=== PATIENT | female | born 1940 | race Caucasian/White ===

== ENCOUNTER → 2022-03-28 | Day surgery (SDC) | payer MEDICARE ==
[2022-03-27 11:05] LABS: BASOPHILS % 0.2 % (0.0-1.0); EOSINOPHILS # (AUTO) 0.3 (0.0-0.4); EOSINOPHILS % 3.5 % (0.0-6.0); HEMATOCRIT 40.7 % (34.2-44.1); HEMOGLOBIN 12.7 g/dL (12.0-16.0); LYMPHOCYTES # (AUTO) 3.4 (1.0-3.2); LYMPHOCYTES % 38.5 % (18.0-39.1); MEAN CORPUSCULAR HEMOGLOBIN 29.8 pg (28-32); MEAN CORPUSCULAR HGB CONC 31.2 g/dL (31-35); MEAN CORPUSCULAR VOLUME 95.5 fL (81-99); MONOCYTES # (AUTO) 0.9 (0.2-0.8); MONOCYTES % 10.2 % (4.4-11.3); NEUTROPHILS # (AUTO) 4.2 (2.1-6.9); NEUTROPHILS % 47.4 % (38.7-80.0); PLATELET COUNT 259 x10e3/uL (140-360); RED BLOOD COUNT 4.26 x10e6/uL (3.6-5.1); RED CELL DISTRIBUTION WIDTH 15.4 % (11.7-14.4)
[~2022-03-28] MED LIST: ACEBUTOLOL HCL200 MG PO; ALIGN4 MG PO; ATACAND16 MG; BUPROPION XL150 MG PO; CALCIUM; CENTRUM ADULTS1 EACH PO; CITALOPRAM HBR20 MG PO; DICYCLOMINE HCL10 MG PO; EPHEDRINE SULFATE INJ 50 MG/ML VIAL ONE; FAMOTIDINE20 MG PO; FLONASE ALLERG9.9 ML INH; FOLIC ACID1 MG PO; HYDROCODON-ACE1 EA11 PO; HYOSCYAMINE SULFATE 0.5 MG/ML INJ ONE; INSPRA25 MG PO; LASIX40 MG PO; LIDOCAINE HCL 2% LOCAL INJ 5 ML SDV VIAL INJ ONE; LORAZEPAM1 MG PO; MELATONIN3 MG PO; MELOXICAM7.5 MG PO; MIDAZOLAM HCL 2 MG/2 ML VIAL ONE; OMEPRAZOLE40 MG PO; POTASSIUM CHLO20 ME1; PRAMIPEXOLE PO; PRAVASTATIN SOD40 MG PO; PROPOFOL IV EMULSION 10 MG/ML 20 ML VIAL ONE; TOPIRAMATE25 MG PO; TRIAMTERENE-HCTZ1 EA PO; VIT D3 PO; VITAMIN C500 M1; [UNRECOGNIZED DRUG - OTHER]
[2022-03-28 16:43] VITALS: BP 119/66
[2022-03-28 16:53] LABS: WBC,FECAL (FECAL LACTOFERRIN) POSITIVE (NEGATIVE)
== END | disposition home or self-care (01) ==
LOC: OR 12:10
PROVIDERS: ATTEND Internal Medicine Gastroenterology
DX: K52.9 Noninfective gastroenteritis and colitis, unspecified (principal); D12.2 Benign neoplasm of ascending colon; K62.89 Other specified diseases of anus and rectum; Z71.3 Dietary counseling and surveillance; G47.33 Obstructive sleep apnea (adult) (pediatric); I10 Essential (primary) hypertension; E78.00 Pure hypercholesterolemia, unspecified; Z88.1 Allergy status to other antibiotic agents; Z01.810 Encounter for preprocedural cardiovascular examination; Z01.812 Encounter for preprocedural laboratory examination; Z20.822 Contact with and (suspected) exposure to COVID-19; Z79.899 Other long term (current) drug therapy; Z68.39 Body mass index [BMI] 39.0-39.9, adult; Z80.0 Family history of malignant neoplasm of digestive organs
CPT/HCPCS: 0223U; 36415; 45380; 45385; 83630; 83993; 85025; 87324; 87449; 88305; 93005; J1980; J2001; J2250; J2704; 45378; 87493; 88304